=== PATIENT | female | born 1970 | race Caucasian/White ===

== ENCOUNTER 2022-10-30 11:50 | Emergency (ER) | payer BC, SELFPAY ==
--- NOTE | ~2022-10-30 | XR_ITS ---
XR finger 3rd RT min 2V DATE: 10/30/2022 12:18 INDICATION: Injury TECHNIQUE: 3 views COMPARISON: None FINDINGS: Possible dorsal soft tissue laceration of distal digit. No fracture or dislocation, periost eal reaction or bone destruction, joint space narrowing, subcutaneous emphysema or radiopaque soft ti ssue foreign body is detected. IMPRESSION: Possible dorsal distal laceration; no radiopaque foreign body or fracture or dislocation Reviewed, dictated and finalized at location A. IMPRESSION: Possible dorsal distal laceration; no radiopaque foreign body or fr acture or dislocation
[2022-10-30 12:02] VITALS: BP 142/72; PULSE 88; RESP 20; TEMP 37; O2SAT 99
--- NOTE | 2022-10-30 12:23 | ED.WOUNDLAC ---
HPI - Wound/Laceration General Chief Complaint: Wound/Laceration Stated Complaint: Right 3rd finger injury History of Present Illness HPI narrative: PATIENT PRESENTS WITH AN INJURY TO HER RIGHT 3RD FINGER. PATIENT CAUGHT THE FINGER BENEATH A GARBAGE CAN AND A CONCRETE SIDEWALK CAUSING AN AVULSION INJURY TO THE FINGER. BLEEDING CONTROLLED PATIENT'S LAST TDAP WAS Related Data Home Medications Medication Instructions Recorded Confirmed montelukast 10 mg tablet mg 10/30/22 Allergies Allergy/AdvReac Type Severity Reaction Status Date / Time benzocaine Allergy Unknown Verified 10/30/22 12:05 Review of Systems Review of Systems: CONSTITUTIONAL: DENIES FEVER, CHILLS, OR SWEATS. EYES: DENIES VISUAL CHANGES, REDNESS, OR DISCHARGE. ENT: DENIES RHINORRHEA, CONGESTION, SORE THROAT, OR OTALGIA. CARDIOVASCULAR: DENIES CHEST PAIN, PALPITATIONS, OR EDEMA. RESPIRATORY: DENIES COUGH OR DYSPNEA. GASTROINTESTINAL: DENIES ABDOMINAL PAIN, NAUSEA, VOMITING, OR DIARRHEA. GENITOURINARY: DENIES DYSURIA OR HEMATURIA. SKIN: DENIES RASH OR ITCHING. MUSCULOSKELETAL: DENIES BACK PAIN, JOINT PAIN, OR MYALGIA. NEUROLOGIC: DENIES HEADACHE, NUMBNESS, OR WEAKNESS. PSYCHIATRIC: DENIES ANXIETY OR DEPRESSION. PMFSH Comments AT TIME OF SIGNATURE, AGREE WITH NURSING PAST MEDICAL, SURGICAL, SOCIAL AND FAMILY HISTORY. THERE IS NO RELEVANT FAMILY HISTORY PERTINENT TO THE PRESENTING COMPLAINT Exam Narrative: GENERAL: WELL-APPEARING, WELL-NOURISHED, AND IN NO ACUTE DISTRESS. HEAD: NORMOCEPHALIC, ATRAUMATIC. EYES: PERRLA AND EOMI. ENT: NARES CLEAR, NO RHINORRHEA OR EPISTAXIS. MUCOUS MEMBRANES MOIST. NECK: SUPPLE. CHEST: CLEAR TO AUSCULTATION. NO RESPIRATORY DISTRESS. HEART: REGULAR RATE AND RHYTHM. NO MURMUR HEARD. NORMAL PERIPHERAL PULSES. ABDOMEN: SOFT, NONTENDER, NONDISTENDED, NORMAL ACTIVE BOWEL SOUNDS. EXTREMITIES: NORMAL RANGE OF MOTION. NO EDEMA. RIGHT 3RD FINGER AVULSION INJURY BETWEEN PIP AND THE IP JOINT. , NO SWELLING, NO ERYTHEMA, NORMAL DIGIT CASCADE WITH FLEXION OF FINGERS, MEDIAN NERVE, ULNAR NERVE, RADIAL NERVE IS INTACT. NORMAL SENSATION OF EACH SIDE OF EACH FINGER, CAN PERFORM `OK? SIGN, `CROSS OVER FINGER TEST OF INDEX AND MIDDLE FINGERS? AND `THUMBS UP? SIGN, NORMAL THUMB OPPOSITION, NO SCISSORING. GOOD CAPILLARY REFILL AND RADIAL PULSE. NORMAL FLEXION AND EXTENSION OF FINGERS AND WRIST. NORMAL SUPINATION AT WRIST. NORMAL FOREARM AND ELBOW EXAM. SKIN: WARM, DRY, NO RASH. NEURO: NO FOCAL DEFICITS. ALERT AND ORIENTED X3. RHINA COMA SCALE EYE OPENING: SPONTANEOUS 4 RHINA COMA SCALE MOTOR: OBEYS COMMANDS 6 RHINA COMA SCALE VERBAL: ORIENTED 5 RHINA COMA SCALE TOTAL 15 Course Course Level of Care: Express Care Visit Vital Signs Vital signs: Vital Signs Temperature 37.0 C 10/30/22 12:02 Pulse Rate 88 10/30/22 12:02 Respiratory Rate 20 10/30/22 12:02 Blood Pressure 142/72 H 10/30/22 12:02 Pulse Oximetry 99 10/30/22 12:02 Oxygen Delivery Room Air 10/30/22 12:02 Temperature 37.0 C 10/30/22 12:02 Pulse Rate 88 10/30/22 12:02 Respiratory Rate 20 10/30/22 12:02 Blood Pressure 142/72 H 10/30/22 12:02 Pulse Oximetry 99 10/30/22 12:02 Oxygen Delivery Room Air 10/30/22 12:02 DISCUSSED WITH PATIENT COULD BE POSSIBLE TENDON DAMAGE WILL REFER TO ORTHOPEDIC ON-CALL DR. LUIZ BROWN. PLEASE INOCENCIO SCHEDULE A FOLLOWUP VISIT WITH YOUR PERSONAL PHYSICIAN FOR FURTHER EVALUATION AND TREATMENT. INCLUDING RECHECK AND DISCUSSION OF YOUR BLOOD PRESSURE. IF YOUR SYMPTOMS PERSIST, CHANGE OR WORSEN SIGNIFICANTLY BEFORE YOU CAN CONTACT YOUR PERSONAL PHYSICIAN THEN PLEASE, WITHOUT DELAY, GO TO THE EMERGENCY DEPARTMENT FOR FURTHER EVALUATION Discharge Plan Discharge Clinical Impression: Laceration, Avulsion of skin, Abrasion, Finger contusion, Finger avulsion Patient Disposition: Home, Self-Care Condition: Stable Instructions: Antibiotic Form, Skin Avulsion (ED) Additional Instructions:
== END 2022-10-30 12:47 | disposition home or self-care (01) ==
PROVIDERS: Emergency Provider Nurse Practitioner Family; PCP Internal Medicine Infectious Disease
DX: S61.202A Unspecified open wound of right middle finger without damage to nail, initial encounter (principal); S60.031A Contusion of right middle finger without damage to nail, initial encounter; X58.XXXA Exposure to other specified factors, initial encounter
CPT/HCPCS: 29130; 73140; 99213; G0463

== ENCOUNTER 2023-01-09 09:00 | Outpatient (RCR) | payer BC, SELFPAY ==
--- NOTE | 2023-01-02 14:00 | OTOPEVAL1 ---
Assessment and note entered by Sampson Beasley, SURESH/Karyn, CHT Evaluation Information Assessment Status Evaluation Diagnosis Stiff right 3rd finger DIP joint Onset 10/30/22 Subjective Information Patient injured the dorsum of the DIP joint when it got smashed and scraped under a trash can and on concrete. She has been splinting the DIP in extension for about 2 months, been weaning out of the splint for the past 2 weeks, just wearing at night. She is right handed and reports decreased functional use of the hand with writing, lifting, pulling, etc. Reports residual weakness and stiffness. Quickdash 13.63% Reported Pain Level Pain Score 0: Self Report Assessment OT Clinical Summary Patient referred to outpatient OT following an avulsion injury with partial terminal tendon laceration at the middle finger DIP joint. Today she was instructed in an active ROM HEP and issued a finger sleeve with a gel pad to wear during the day for scar massage. Plan to have her return in a week to upgrade to strengthening after she works on active ROM/flexibility. Plan of Care Interventions Therapeutic Exercise,Manual Therapy,Therapeutic Activities,Paraffin OT Services Indicated Yes Treatment Frequency and 1x/week for 3 weeks Duration These treatments will address the objective and functional deficits as defined above. The patient will be advanced safely and appropriately in order for the patient to progress towards his/her prior level of function. Additional exercises will be introduced and as well as a comprehensive home exercise program upon discharge, if needed, ?to ensure carryover of functional gains achieved in the clinic. This treatment plan has been reviewed and agreement upon by the patient.
--- NOTE | 2023-01-02 14:00 | OPREHPOC ---
Outpatient Therapy Plan of Care This is a Multidisciplinary Plan of Care that may contain components documented by all disciplines (PT, OT, and ST.) OT Problem 1 OT Problem #1 Knowledge Deficit OT Goal 1 Goal 1. Patient to be independent with instructed materials. Target Visit 4 OT Problem 2 OT Problem #2 Impaired Range of Motion OT Goal 1 Goal 1. Patient to be able to make a hook fist with <1 cm gap between the middle finger and the DPC. Target Visit 4 OT Problem 3 OT Problem #3 Impaired Strength OT Goal 1 Goal 1. Patient to be able to complete right fixing carpenter/pinch strengthening with yellow putty x5 minutes without reports of pain.
--- NOTE | 2023-01-09 09:40 | OTOPDC ---
Assessment and note entered by Sampson Beasley, SURESH/Karyn, T Discharge Summary 01/09/23 Diagnosis Stiff right 3rd finger DIP joint Onset 10/30/22 Subjective Information Patient injured the dorsum of the DIP joint when it got smashed and scraped under a trash can and on concrete. She reports improved flexibility since our initial visit last week. She has been compliant with all materials. ROM has improved since a week ago. She continues to report no pain. Pain Score 0: Self Report Assessment OT Clinical Summary Patient referred to outpatient OT following an avulsion injury with partial terminal tendon laceration at the middle finger DIP joint. She was instructed in active ROM last week and presents today showing good progress. She was upgraded to strengthening and demonstrates excellent understanding of all exercises. No further skilled OT indicated at this time. D/C with patient independent with HEP. Plan of Care OT Services Indicated No
== END 2023-01-09 13:14 | disposition home or self-care (01) ==
LOC: ANHOT 09:00
PROVIDERS: PCP Internal Medicine Infectious Disease; Visit Provider Plastic Surgery
DX: M25.641 Stiffness of right hand, not elsewhere classified (principal)
CPT/HCPCS: 97110; 97165